=== PATIENT | female | born 1945 | race Caucasian/White ===

== ENCOUNTER → 2019-07-30 | Outpatient (REF) | payer MEDICARE, BC ==
[2019-07-30 16:16] LABS: INFLUENZA A AMPLIFICATION POSITIVE (NEGATIVE); INFLUENZA B AMPLIFICATION NEGATIVE (NEGATIVE)
== END ==
LOC: M LAB REF 15:11
PROVIDERS: ATTEND Physician Assistant
DX: J11.1 Influenza due to unidentified influenza virus with other respiratory manifestations (principal)

== ENCOUNTER → 2019-08-21 | Outpatient (CLI) | payer MEDICARE, BC ==
--- NOTE | 2019-08-22 07:26 | REP ---
Left knee five views: There is demineralization. There is joint space narrowing of the medial compartment compatible with articular cartilage atrophy. There is no fracture or dislocation. However, I suspect there is a small hemarthrosis. There are no calcifications or foreign bodies. Impression: Small knee hemarthrosis. Medial compartment joint space narrowing. No fracture or dislocation. Electronically Signed by Agustín Odonnell MD 08/21/2019 03:42 P
--- NOTE | 2019-08-22 07:27 | REP ---
Left wrist four views: There is diffuse demineralization. I suspect there is a nondisplaced transverse fracture of the distal radius with a longitudinal intra-articular component. This should be correlated with clinical point tenderness. If clinically indicated, CT would be helpful for confirmation. 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 The scaphoid lunate joint appears widened. There are no calcifications or foreign bodies. Impression: Probable nondisplaced fracture of the distal radius with interarticular component. Correlate clinically. CT would be confirmatory I felt clinically indicated. Electronically Signed by Agustín Odonnell MD 08/21/2019 03:41 P
== END ==
LOC: M RAD 14:39
PROVIDERS: ATTEND Physician Assistant
DX: M25.532 Pain in left wrist (principal); M25.562 Pain in left knee; W19.XXXA Unspecified fall, initial encounter

== ENCOUNTER → 2019-10-27 | Outpatient (REF) | payer MEDICARE, BC ==
[2019-10-27 14:53] LABS: FREE T4 1.48 NG/DL (0.76-1.46); THYROID STIMULATING HORMONE 1.09 uIU/ML (0.358-3.740)
== END ==
LOC: M SFHCPLAZ 09:57
PROVIDERS: ATTEND Physician Assistant
DX: E03.9 Hypothyroidism, unspecified (principal)

== ENCOUNTER → 2019-12-23 | Outpatient (REF) | payer MEDICARE, BC ==
[2019-12-23 14:08] LABS: ALBUMIN 3.9 GM/DL (3.2-5.2); ALT/SGPT 46 U/L (12-78); BILIRUBIN,TOTAL 0.6 MG/DL (0.2-1.0); BLOOD UREA NITROGEN 19 MG/DL (7-18); CALCIUM LEVEL 9.3 MG/DL (8.8-10.2); CARBON DIOXIDE LEVEL 30 MEQ/L (21-32); CHLORIDE LEVEL 104 MEQ/L (98-107); CHOLESTEROL LEVEL 232 MG/DL (<200); CHOLESTEROL RISK RATIO 3.012 (<5); FREE T4 0.85 NG/DL (0.76-1.46); GLOMERULAR FILTRATION RATE > 60.0 (>39); GLUCOSE, FASTING 94 MG/DL (70-100); HDL CHOLESTEROL 77 MG/DL (>40); LDL CHOLESTEROL 132 MG/DL (<100); NON-HDL-C 155 MG/DL; POTASSIUM SERUM 4.3 MEQ/L (3.5-5.1); SODIUM LEVEL 140 MEQ/L (136-145); TOTAL 25(OH) VITAMIN D 21.1 NG/ML (30.0-100.0); TOTAL PROTEIN 7.9 GM/DL (6.4-8.2); TRIGLYCERIDES LEVEL 114 MG/DL (<150)
== END ==
LOC: M PLALAB 08:37
PROVIDERS: ATTEND Physician Assistant
DX: I10 Essential (primary) hypertension (principal); E03.9 Hypothyroidism, unspecified; E78.2 Mixed hyperlipidemia; E55.9 Vitamin D deficiency, unspecified

== ENCOUNTER → 2020-02-10 | Outpatient (REF) | payer MEDICARE, BC ==
[2020-04-05 04:38] LABS: FREE T4 1.02 NG/DL (0.76-1.46); THYROID STIMULATING HORMONE 6.47 uIU/ML (0.358-3.740)
== END ==
LOC: M SFHCPLAZ 10:39
PROVIDERS: ATTEND Physician Assistant
DX: E03.9 Hypothyroidism, unspecified (principal)

== ENCOUNTER → 2020-06-22 | Outpatient (CLI) | payer MEDICARE, BC ==
--- NOTE | 2020-06-22 21:34 | DEXAMM ---
INDICATION: M85.80 OTHER DISORDER OF BONE. COMPARISON: The most recent prior examination is from January 27, 2015. The most remote is dated July 03, 2001.. TECHNIQUE: Bone density was measured using dual-energy x-ray absorptionmetry (DEXA). FINDINGS: AP SPINE L1-L4 BMD 1.094 g/cm2 Young Adult T-Score -0.8 Age Matched Z-Score 1.0. LT FEMUR, TOTAL BMD 0.787 g/cm2 Young Adult T-Score -1.8 Age Matched Z-Score 0.0. LT NECK BMD 0.733 g/cm2 Young Adult T-Score -2.2 Age Matched Z-Score -0.2. RT FEMUR, TOTAL BMD 0.794 g/cm2 Young Adult T-Score -1.7 Age Matched Z-Score 0.1. RT NECK BMD 0.729 g/cm2 Young Adult T-Score -2.2 Age Matched Z-Score -0.3. IMPRESSION: There is normal bone density of the spine. There is low bone density of the left hip. There is low bone density of the right hip. The density of the spine has decreased 10.0% since the initial exam on July 03, 2001. The density of the spine decreased 10.5% since most recent exam on January 27, 2015. The density of the left hip has decreased 18.1% since initial exam on July 03, 2001. The density of the left hip has decreased 10.7% since most recent exam on January 27, 2015. The density of the right hip has decreased 13.2% since the initial exam on July 03, 2001. The density of the right hip has decreased 6.1% since the most recent exam on January 27, 2015. FOLLOW-UP: Recommendation for the next bone density exam: 2 years. <Electronically signed by Jamey Rockwell > 06/22/20 [id number]
--- NOTE | 2020-06-22 21:35 | REPMRS ---
Patient History The patient states she has not had a clinical breast exam in over a year. No known family history of cancer. Digital Woman Screen Mammo: June 22, 2020 - Exam #: [id number] Bilateral CC and MLO view(s) were taken. Technologist: Pascale Thurman, Technologist Prior study comparison: January 27, 2015, digital woman screen mammo performed at [facility]. January 14, 2014, digital woman screen mammo performed at [facility]. December 03, 2012, digital woman screen mammo performed at [facility]. FINDINGS: There are scattered fibroglandular densities. The Volpara volumetric breast density category is:B. There has been no change in the appearance of the mammogram from the prior studies. There is a mild amount of scattered fibroglandular density which is fairly symmetric. There is no interval development of dominant mass, architectural distortion, or grouped microcalcification suggestive of malignancy. 3-D tomosynthesis shows no additional findings. Assessment: BI-RADS/ACR category 1 mammogram. Negative Mammogram. Recommendation Routine screening mammogram of both breasts in 1 year (for women over age 40). This patient's [facility] Lifetime Breast Cancer Risk is estimated at 2.3 %. This mammogram was interpreted with the aid of an FDA-approved computer-aided dectection system. Electronically Signed By: Jamey Rockwell MD 06/22/20 [id number]
== END ==
LOC: M WHC 12:26
PROVIDERS: ATTEND Nurse Practitioner Adult Health
DX: Z12.31 Encounter for screening mammogram for malignant neoplasm of breast (principal); M85.89 Other specified disorders of bone density and structure, multiple sites

== ENCOUNTER → 2020-07-06 | Outpatient (REF) | payer MEDICARE, BC | LOC: M LAB REF 08:18 | PROVIDERS: ATTEND Surgery | DX: D17.22 Benign lipomatous neoplasm of skin and subcutaneous tissue of left arm (principal) ==

== ENCOUNTER → 2021-11-16 | Outpatient (CLI) | payer MEDICARE, BC | LOC: M WHC 08:35 | PROVIDERS: ATTEND Nurse Practitioner Adult Health | DX: Z12.31 Encounter for screening mammogram for malignant neoplasm of breast (principal) ==

== ENCOUNTER → 2022-01-27 | Outpatient (CLI) | payer MEDICARE, BC | LOC: M RAD 09:29 | PROVIDERS: ATTEND Nurse Practitioner Adult Health | DX: Z87.81 Personal history of (healed) traumatic fracture (principal) ==

== ENCOUNTER → 2022-05-15 | Outpatient (REF) | payer MEDICARE, BC | LOC: M SFHCDERM 17:24 | PROVIDERS: ATTEND Nurse Practitioner Family | DX: L82.1 Other seborrheic keratosis (principal) ==

== ENCOUNTER → 2022-06-21 | Outpatient (CLI) | payer MEDICARE, BC | LOC: M WUC 09:57 | PROVIDERS: ATTEND Nurse Practitioner Adult Health | DX: M79.674 Pain in right toe(s) (principal); M85.871 Other specified disorders of bone density and structure, right ankle and foot; M20.11 Hallux valgus (acquired), right foot ==

== ENCOUNTER 2022-06-27 11:28 | Emergency (ER) | payer MEDICARE, BC ==
[~2022-06-27] VITALS: Ht 160 cm; Wt 76.6 kg
[2022-06-27] MEDS ORDERED: COLC0.6T47 (11:40)
[2022-06-27] MEDS ORDERED: AMLO1TAB24 (11:40)
[2022-06-27] MEDS ORDERED: SIMV20TA22 (11:40)
[2022-06-27] MEDS ORDERED: SYNT75TA (11:40)
[2022-06-27 14:27] VITALS: BP 168/88
== END 2022-06-27 15:17 | disposition home or self-care (01) ==
LOC: M ED 11:28
DX: R07.81 Pleurodynia (principal); W00.0XXA Fall on same level due to ice and snow, initial encounter; Y92.481 Parking lot as the place of occurrence of the external cause; I10 Essential (primary) hypertension; Z88.0 Allergy status to penicillin; Z88.8 Allergy status to other drugs, medicaments and biological substances; Z79.890 Hormone replacement therapy; Z79.899 Other long term (current) drug therapy

== ENCOUNTER → 2022-10-20 | Outpatient (CLI) | payer MEDICARE, BC ==
[~2022-10-20] MED LIST: AMLO1TAB24; COLC0.6T47; GASTROGRAFIN SOLUTION 30ML As Ordered ONE; ISOVUE-370 76% 100ML VIAL As Ordered ONE; SIMV20TA22; SYNT75TA
== END ==
LOC: M RAD 13:53
PROVIDERS: ATTEND Nurse Practitioner Adult Health
DX: R19.01 Right upper quadrant abdominal swelling, mass and lump (principal)
CPT/HCPCS: 74170; Q9963; Q9967

== ENCOUNTER → 2022-11-15 | Outpatient (REF) | payer MEDICARE, BC ==
[~2022-11-15] MED LIST changes: -GASTROGRAFIN SOLUTION 30ML As Ordered ONE; -ISOVUE-370 76% 100ML VIAL As Ordered ONE
[2022-11-15 12:55] LABS: IRON (FE) 91 UG/DL (50-170)
[2022-11-15 12:58] LABS: FERRITIN 266.4 NG/ML (7.3-270.7); VITAMIN B12 LEVEL 457 PG/ML (211-911)
[2022-11-15 13:15] LABS: HEPATITIS B SURFACE ANTIGEN NEGATIVE (NEGATIVE)
[2022-11-15 13:36] LABS: HEPATITIS B CORE ANTIBODY IGM NEGATIVE (NEGATIVE)
== END ==
LOC: M LAB REF 12:12
PROVIDERS: ATTEND Nurse Practitioner Adult Health
DX: K74.02 Hepatic fibrosis, advanced fibrosis (principal)

== ENCOUNTER → 2022-11-23 | Outpatient (CLI) | payer MEDICARE, BC | LOC: M WHC 08:55 | PROVIDERS: ATTEND Nurse Practitioner Adult Health | DX: Z12.31 Encounter for screening mammogram for malignant neoplasm of breast (principal); M81.0 Age-related osteoporosis without current pathological fracture ==

== ENCOUNTER → 2022-11-24 | Outpatient (REF) | payer MEDICARE, BC ==
[2022-11-27 21:07] LABS: ANTINUCLEAR ANTIBODIES DIRECT Negative (Negative); CERULOPLASMIN 21.8 mg/dL (19.0-39.0); COPPER PLASMA 94 ug/dL (80-158)
== END ==
LOC: M LAB REF 16:23
PROVIDERS: ATTEND Nurse Practitioner Adult Health
DX: K74.02 Hepatic fibrosis, advanced fibrosis (principal)

== ENCOUNTER → 2023-08-13 | Outpatient (REF) | payer MEDICARE, BC ==
[2023-08-13 12:19] LABS: INR 0.97; PROTHROMBIN TIME 12.6 SECONDS (12.5-14.5)
== END ==
LOC: M LAB REF 11:48
PROVIDERS: ATTEND Nurse Practitioner Family
DX: R79.89 Other specified abnormal findings of blood chemistry (principal); Z79.01 Long term (current) use of anticoagulants

== ENCOUNTER → 2023-12-12 | Outpatient (CLI) | payer MEDICARE, BC | LOC: M RAD 13:37 | PROVIDERS: ATTEND Nurse Practitioner Family | DX: F17.211 Nicotine dependence, cigarettes, in remission (principal) ==

== ENCOUNTER → 2023-12-14 | Outpatient (CLI) | payer MEDICARE, BC | LOC: M RAD 08:43 | PROVIDERS: ATTEND Student in an Organized Health Care Education/Training Program | DX: R79.89 Other specified abnormal findings of blood chemistry (principal); K74.00 Hepatic fibrosis, unspecified; K59.00 Constipation, unspecified; K76.0 Fatty (change of) liver, not elsewhere classified ==

== ENCOUNTER → 2024-06-03 | Outpatient (REF) | payer MEDICARE, BC ==
[2024-06-03 12:36] LABS: INR 0.96; PROTHROMBIN TIME 13.1 SECONDS (12.5-14.5)
== END ==
LOC: M LAB REF 12:00
PROVIDERS: ATTEND Nurse Practitioner Family
DX: K74.00 Hepatic fibrosis, unspecified (principal)

== ENCOUNTER → 2024-10-27 | Outpatient (REF) | payer MEDICARE, BC | LOC: M SFHCLERA 12:34 | PROVIDERS: ATTEND Internal Medicine | DX: I10 Essential (primary) hypertension (principal) ==

== ENCOUNTER → 2025-03-05 | Outpatient (CLI) | payer MEDICARE, BC ==
[~2025-03-05] MED LIST changes: -COLC0.6T47; +COLC0.6T53
== END ==
LOC: M RAD 09:48
PROVIDERS: ATTEND Internal Medicine
DX: M79.642 Pain in left hand (principal); M25.562 Pain in left knee

== ENCOUNTER → 2025-05-11 | Outpatient (CLI) | payer MEDICARE, BC ==
[2025-05-11 16:25] LABS: BASO # 0.1 10^3/uL (0.0-0.2); BASO % 1.0 % (0.0-1.0); EOS # 0.0 10^3/uL (0.0-0.5); EOS % 0.0 % (0.0-3.0); LYMPH # 1.4 10^3/uL (1.5-5.0); LYMPH % 28.3 % (24.0-44.0); MONO # 0.5 10^3/uL (0.0-0.8); MONO % 9.1 % (2.0-8.0); NEUTROPHILS # 3.1 10^3/uL (1.5-8.5); NEUTROPHILS % 61.2 % (36.0-66.0); PLATELET COUNT, AUTOMATED 201 10^3/uL (150-450)
[2025-05-11 16:30] LABS: ALT/SGPT 59 U/L (7.0-40); AST/SGOT 53 U/L (<34); CALCIUM LEVEL 9.2 MG/DL (8.3-10.6); CARBON DIOXIDE LEVEL 31 MMOL/L (20-31); CHLORIDE LEVEL 100 MMOL/L (98-107); CHOLESTEROL LEVEL 184 MG/DL (<200); CHOLESTEROL RISK RATIO 2.82 (<5); CREATININE FOR GFR 0.61 MG/DL (0.55-1.30); GLOMERULAR FILTRATION RATE > 90.0 (>32); LDL CHOLESTEROL 93.1 MG/DL (<100); NON-HDL-C 118.9 MG/DL; POTASSIUM SERUM 4.1 MMOL/L (3.5-5.1); SODIUM LEVEL 141 MMOL/L (136-145); TRIGLYCERIDES LEVEL 129 MG/DL (<150)
[2025-05-11 16:55] LABS: ESTIMATED AVERAGE GLUCOSE 123.0 MG/DL (60-110)
[2025-05-11 17:29] LABS: TOTAL 25(OH) VITAMIN D 18.0 NG/ML (20.0-100.0)
== END ==
LOC: M PLALAB 11:52
PROVIDERS: ATTEND Internal Medicine
DX: Z00.00 Encounter for general adult medical examination without abnormal findings (principal); E03.8 Other specified hypothyroidism; M81.0 Age-related osteoporosis without current pathological fracture; Z79.899 Other long term (current) drug therapy